=== PATIENT | male | born 1950 | race Caucasian/White ===

== ENCOUNTER 2024-05-21 07:46 | Emergency (ER) | payer MEDICARE, OTHER, SELFPAY ==
[2024-05-21 07:48] VITALS: BP 139/83
--- NOTE | 2024-05-21 09:33 | ED.GENMED ---
History of Present Illness
General
Chief Complaint: Musculo-Skeletal Complaint
Source: patient
Time Seen by Provider: 05/21/24 08:24
History of Present Illness
History of Present Illness:
73-year-old male with past medical history of hypertension, short-bowel syndrome, kidney stones presenting to the emergency department for evaluation of a few weeks of right-sided hip/lower back pain, worse in the morning, seems to improve
throughout the day also improved with Motrin the other day and Aleve this morning. Patient states he cannot remember any specific time where he injured his hip or back and notes that this is just been progressing which is what prompted him to come
to the ER today. Denies any history of similar. Has not seen anybody since pain started. No fevers or infectious symptoms. No other concerns.
Past History
Past History
ED Past Medical History: HTN and Other (Kidney stone, obstructive sleep apnea)
ED Past Surgical History: Appendectomy (1972), Bowel resection (1972 status post perforated appendix) and Other (Bilateral inguinal hernia repair)
Social History
Tobacco: Non-smoker
Alcohol: Occasional
Drug: None
Personal:
Living: with family
Employment: Retired
Family History
Family History: Other (Noncontributory)
Review of Systems
Review of Systems
All Other Systems: ROS reviewed and negative except as documented in HPI and ROS
Phy Exam
Physical Exam
Physical Exam:
GENERAL: Alert , in no apparent distress
EYE: conjunctiva clear
Head: Normocephalic atraumatic
NECK: Supple,
ENT: mmm.
LUNGS: no acute respiratory distress
NEUROLOGICAL: Alert and oriented, ambulatory with steady gait, negative straight leg raise, EHL intact bilateral, sensation grossly intact to light touch
SKIN: Warm and dry, skin intact.
MUSCULOSKELETAL: well perfused. easily palpable pedal/tibial pulse, mild edema to LE b/l. CR < 2 sec. FROM b/l LE
PSYCH: Normal and appropriate interaction.
Scores
Heart Failure Risk
Heart Failure Risk Score: Not Applicable
Heart Score for Chest Pain Patients
STEMI patient?: Not applicable
Withdrawal Assessment of Alcohol
Withdrawal Assessment Completed?: Not applicable
Course
Orders/Labs/Results
Orders:
Orders
05/21/24 08:41
CR Hip - RT w/wo Pel 2-3 Vw* Urgent
Comment:
Reason For Exam: pain
Include a pelvis x-ray?: Yes
CR Lumbar Spine Comp Min 4 Vw* Urgent
Comment:
Reason For Exam: pain, no trauma
Vital Signs
Initial and Last Documented VS:
Initial Vital Signs
Temp Pulse Resp BP Pulse Ox
98.3 F 65 16 139/83 98
05/21/24 07:48 05/21/24 07:48 05/21/24 07:48 05/21/24 07:48 05/21/24 07:48
Last Documented Vital Signs
Temp Pulse Resp BP Pulse Ox
98.3 F 65 16 139/83 98
05/21/24 07:48 05/21/24 07:48 05/21/24 07:48 05/21/24 07:48 05/21/24 07:48
MDM/Problems Addressed
Differential Diagnosis Includes:
Sciatica, degenerative disc disease, lumbar strain, arthritis, bursitis, tendinitis, I do not have concern for infectious etiology
MDM/Problems Addressed:
73-year-old male presenting the ER for evaluation of waxing and waning right hip/lower back pain over the last few weeks, unchanged today but patient did note some increased pain this morning which is what prompted him to come to the ER. Pain
improved with naproxen. Patient is able to ambulate on his own with no noticeable limp. X-ray of the lumbar spine and hip ordered. There is degenerative changes throughout the lumbar spine that is most pronounced at L1-L2 and L5-S1. Mild
degenerative changes of the right hip noted on x-ray as well. Advised patient continue anti-inflammatories over the next 5 to 7 days, Medrol Dosepak provided. Information for orthopedics provided at this time patient stable for discharge home.
Aware of return precautions to the ER.
*Radiology
Radiology exam reviewed: preliminary read by ED provider (No acute fracture. Degenerative changes noted)
*Pulse Oximetry
Patient hypoxic: no
*Critical Care Note
Total Time (30-74mins, 75-104mins- exclusive of procedures): Not Applicable
ED Attending Note
-
Portions of this chart may have been created with voice recognition software.� Occasional wrong word or��sound alike� substitutions may have occurred due to the inherent limitations of voice recognition software.
Discharge Plan
Departure
Patient Disposition: Home (Routine Discharge)
Date of Disposition: 05/21/24
Time of Disposition: 09:33
Patient with high blood pressure during this ER visit?: No
Discharge Problem:
Low back pain, Hip pain, right
Instructions: Hip Pain ED
Prescriptions:
New
methylprednisolone [Medrol (Jeet)] 4 mg tablets,dose pack
4 mg PO DIRECTED Qty: 21 0RF
No Action
amlodipine-benazepril 1 EACH capsule
1 ea PO DAILY
ondansetron HCl [Zofran] 4 MG tablet
4 mg PO Q8HPRN Qty: 14 0RF
Rx Instructions:
prn for nausea and vomiting
hydromorphone 2 MG tablet
2 mg PO Q6HPRN PRN (Reason: prn for pain) Qty: 20 0RF
tamsulosin 0.4 MG capsule
0.4 mg PO DAILY Qty: 10 0RF
beta carotene 10,000 UNIT capsule
25,000 unit PO DAILY
omega-3 fatty acids-fish oil [Fish Oil] 1,000 MG capsule
1,200 cap PO DAILY
Vit C Tab
1,000 mg PO DAILY
Vit D3 Tab
2,000 mg PO DAILY
ciprofloxacin HCl [Cipro] 500 MG tablet
500 mg PO BID Qty: 6 0RF
Referrals:
Earl Branham MD [Active] - (Orthopedist - Call for appointment)
Katharine Sage MD [Family Provider] -
Interventions
Interventions:
*Risk Screen - Suicide Last Done: 05/21/24 07:48
*General Assessment Last Done: 05/21/24 07:48
*Neglect/Abuse Screening Last Done: 05/21/24 09:45
*ED- Fall Risk Assessment Last Done: 05/21/24 09:45
*ED COVID-19 Vaccine History Last Done: 05/21/24 07:48
*Nursing Disposition Last Done: 05/21/24 09:46
ED-Musculoskeletal Assessment Last Done: 05/21/24 09:45
Discharge Date and Time
Discharge Date/Time: 05/21/24 09:56
Print Language: BELGIAN
== END 2024-05-21 09:56 | disposition home or self-care (01) ==
LOC: EMR 07:46
PROVIDERS: EMERGENCY PHYSICIAN Emergency Medicine; FAMILY PHYSICIAN Internal Medicine
DX: M54.50 Low back pain, unspecified (principal); M25.551 Pain in right hip; M47.817 Spondylosis without myelopathy or radiculopathy, lumbosacral region; I10 Essential (primary) hypertension; Z87.442 Personal history of urinary calculi; Z90.49 Acquired absence of other specified parts of digestive tract; G47.33 Obstructive sleep apnea (adult) (pediatric)
CPT/HCPCS: 99284; 72110; 73502